=== PATIENT | female | born 1990 | race Two or more races ===

== ENCOUNTER → 2019-05-07 17:40 | Outpatient (CLI) | payer BC, SELFPAY ==
--- NOTE | ~2019-05-07 | XR_ITS ---
EXAMINATION: XR chest 2V EXAM DATE: 05/07/2019 18:04 INDICATION: Positive TB test. Asymptomatic. TECHNIQUE: Frontal and lateral projections of the chest obtained and reviewed. There is no prior farzad dy for comparison. FINDINGS: The lungs are clear. There are no pleural effusions. The cardiomediastinal silhouette is within normal limits. There is no pneumothorax suspected. The bones and soft tissues are unremarkab le. IMPRESSION: Normal chest x-ray exam. Reviewed, dictated and finalized at location A. MANAGER IMPRESSION: Normal chest x-ray exam.
== END ==
DX: R76.12 Nonspecific reaction to cell mediated immunity measurement of gamma interferon antigen response without active tuberculosis (principal)
CPT/HCPCS: 71046